=== PATIENT | male | born 1970 | race African-American/Black ===

== ENCOUNTER 2019-03-13 17:18 | Inpatient (IN) ==
[2019-03-13 17:43] LABS: BASO# 0.03 X1000 (0.0-0.2); BASO% 0.5 % (0.0-0.8); EOS# 0.23 X1000 (0.0-0.7); HEMATOCRIT 34.1 % (42.0-52.0); HEMOGLOBIN 10.3 g/dL (14.0-18.0); IMM GRAN# 0.01 X1000 (0.0-0.04); IMM GRAN% 0.2 % (0.0-0.5); LYMPH# 1.94 X1000 (1.2-3.4); LYMPH% 33.3 % (20.5-51.1); MCH 23.9 PG (27-31); MCHC 30.2 g/dL (33-37); MCV 79.1 FL (81-99); MONO# 0.31 X1000 (0.11-0.59); MONO% 5.3 % (1.7-9.3); MPV 11.7 FL (7.4-10.4); NEUT% 56.7 % (42.2-75.2); PLT 317 X1000 (130-400); RBC 4.31 XMIL (4.7-6.1); RDW 13.7 % (11.5-14.5); WBC 5.82 X1000 (4.8-10.8)
[2019-03-13 18:01] LABS: ALBUMIN 3.8 g/dL (3.5-5.0); CALCIUM 9.1 mg/dL (8.8-10.2); TOTAL BILIRUBIN 0.2 mg/dL (0.20-1.00); TOTAL PROTEIN 8.1 g/dL (6.3-8.3)
[2019-03-13 18:03] LABS: POTASSIUM 6.4 mmol/L (3.5-5.1)
[2019-03-13] MEDS ORDERED: HUMULIN R (PARKWAY) IV ONE (18:04)
[2019-03-13] MEDS ORDERED: SODIUM BICARBONATE 8.4% IV PUSH ONE (18:04)
--- NOTE | 2019-03-13 18:43 | EKG Report ---
Test Performed on : 03/13/2019 6:33:09 PM Test Reason : pain Blood Pressure : / mmHG Vent. Rate : 085 BPM Atrial Rate : 085 BPM P-R Int : 176 ms QRS Dur : 102 ms QT Int : 352 ms P-R-T Axes : 049 -40 030 degrees QTc Int : 418 ms Sinus rhythm. with occasional ventricular-paced complexes Left axis deviation Anterolateral infarct , age undetermined Abnormal ECG No previous ECGs available Confirmed by Stefan Reeves MD ([id number]) on 03/19/2019 6:32:52 AM
[2019-03-13] MEDS ORDERED: POTASSIUM CHLORIDE 20 MEQ/SWI 20 MEQ/100 ML IVPB IV PRN (19:07)
[2019-03-13] MEDS ORDERED: CALCIUM CHLORIDE SYRINGE IV ONE (19:15)
--- NOTE | 2019-03-13 19:18 | PROVIDER DOCUMENTATION ---
This chart was entered by Lu Bolaños Scribe, acting as scribe for Chase Garcia MD. HPI-General Adult - General Chief Complaint: Abnormal Lab[s] Stated Complaint: ABD LABS Time Seen by Provider: 03/13/19 18:03 Source: patient Allergies/Adverse Reactions: Patient Allergies Allergy/AdvReac Type Severity Reaction Status Date / Time No Known Allergies Allergy Verified 03/13/19 18:27 Home Medications: Home Medication List Medication Instructions Recorded Confirmed Last Taken Type Dapagliflozin/Metformin HCl 1 tab PO DAILY 03/13/19 03/13/19 Unknown History [Xigduo Xr 10 mg-1,000 mg Tab] Hydrochlorothiazide 1 tab PO DAILY 03/13/19 03/13/19 Unknown History - History of Present Illness -Gen Adult Nature of Presenting Problems: Pt is a 48yom who presents to the ED with a CC of high potassium. Pt states that he seen his PCP Dr. Israel Us and was told to visit the ED. Pt denies any chest pain, sob, or fever. Pt is a diabetic and reports to the ED with a BS >600. Pt is non toxic in appearance and does not present to the ED with any other complaints. Location of Pain/Injury: reports: none Pain Radiation: reports: no radiation Quality of Pain: reports: none Onset/Duration: reports: unsure Timing: reports: still present Context/Activities at Onset: reports: none Modifying Factors: improves with: nothing Associated Symptoms: reports: denies symptoms Similar Symptoms Previously?: No Recently seen or treated by another doctor?: Yes - Diabetes Related Context Context: reports: high blood sugar (over 600) Review of Systems - Adult - REVIEW OF SYSTEMS - ADULT Constitutional: reports: see HPI, other (high potassium) Eyes: reports: no symptoms reported Ears, Nose, Mouth & Throat: reports: no symptoms reported Cardiovascular: reports: no symptoms reported Respiratory: reports: no symptoms reported Gastrointestinal: reports: no symptoms reported Genitourinary: reports: no symptoms reported Musculoskeletal: reports: no symptoms reported Integumentary: reports: no symptoms reported Neurological: reports: no symptoms reported Psychiatric: reports: no symptoms reported Endocrine: reports: no symptoms reported Hematologic/Lymphatic: reports: no symptoms reported Allergic/Immunologic: reports: no symptoms reported All Other Systems: Reviewed and Negative Past History - Adult - PAST MEDICAL HISTORY-ADULT Review of Records: reports: Old Records Reviewed, Nursing Assessment Review, Medications Reviewed, Social history reviewed & non-contributory. Major Childhood Illnesses: reports: denies history Cardiovascular: reports: denies history Respiratory: reports: denies history Gastrointestinal: reports: denies history Obstetrical/Gynecological: reports: denies history Genitourinary: reports: denies history Musculoskeletal: reports: denies history Neurological: reports: denies history Endocrine/Immune: reports: Diabetes Other Conditions: reports: denies history - PRIOR SURGERIES/PROCEDURES Surgical/Procedure History: reports: none Physical Exam-General - PHYSICAL EXAM-ADULT Initial Vital Signs Reviewed: Yes - CONSTITUTIONAL General Appearance: alert, no apparent distress - EYES Eyes: PERRL/EOMI, pink conjunctivae - HEAD, EARS, NOSE, MOUTH & THROAT HENMT: normocephalic/atraumatic, moist mucous membranes - NECK Neck: non-tender, full range of motion, normal inspection - RESPIRATORY Respiratory: chest non-tender, lungs clear, normal breath sounds - CARDIOVASCULAR Cardiovascular: normal peripheral pulses, regular rate, rhythm - GASTROINTESTINAL (ABDOMEN) Abdominal Exam: normal bowel sounds, non tender, soft - LYMPHATIC Lymphatic: no adenopathy - MUSCULOSKELETAL Back Exam: normal inspection Extremity: normal range of motion, non-tender, normal inspection - SKIN Integumentary: normal color, normal turgor, warm/dry - NEUROLOGIC Neurologic: grossly normal - PSYCHIATRIC Psych/Mental Status: normal mood/affect, normal thought content, normal thought process, oriented x 3 Progress - PLAN OF CARE/RESULTS Progress/Plan/Lab Results: Vital Signs - 8 hr 03/13/19 17:22 Temperature 98.1 F Pulse Rate 88 Respiratory Rate 20 Blood Pressure 150/79 O2 Sat by Pulse Oximetry 98 Laboratory Results - last 24 hr 03/13/19 03/13/19 17:31 17:31 WBC 5.82 RBC 4.31 L Hgb 10.3 L Hct 34.1 L MCV 79.1 L MCH 23.9 L MCHC 30.2 L RDW Std Deviation 13.7 Plt Count 317 MPV 11.7 H Immature Gran % (Auto) 0.2 Neut % (Auto) 56.7 Lymph % (Auto) 33.3 Arthur % (Auto) 5.3 Eos % (Auto) 4.0 Baso % (Auto) 0.5 Immature Gran # (Auto) 0.01 Neut # (Auto) 3.30 Lymph # (Auto) 1.94 Arthur # (Auto) 0.31 Eos # (Auto) 0.23 Baso # (Auto) 0.03 Sodium 126 L Potassium 6.4 H* Chloride 93 L Carbon Dioxide 22 L Anion Gap 11 BUN 32 H Creatinine 2.0 H Estimated GFR/1.73 m2 36 BUN/Creatinine Ratio 16 Glucose 645 H* Calculated Osmolality 291 Calcium 9.1 Total Bilirubin 0.20 AST 7 L ALT 8 L Alkaline Phosphatase 190 H Total Protein 8.1 Albumin 3.8 Globulin 4.0 Albumin/Globulin Ratio 1.0 Orders Category Date Time Status Cardiac Monitoring DIRECTED Care 03/13/19 18:04 Active Saline Loc NOW Care 03/13/19 18:05 Active CBC WITH DIFF [HEME] Stat Lab 03/13/19 17:31 Completed CMP [COMPREHENSIVE METABOLIC PANEL] [CHEM] Stat Lab 03/13/19 17:31 Completed Insulin Human Regular ([place] [Humulin R ([place])] Med 03/13/19 18:04 Discontinued 15 units IV NOW ONE Sodium Bicarbonate 8.4% Med 03/13/19 18:04 Discontinued 50 meq IV PUSH NOW ONE EKG [EKG] Stat Ther 03/13/19 18:05 Ordered Result Diagrams: 03/13/19 17:31 03/13/19 19:17 - EKG 1 Time of EKG reading by physician:: 18:34 EKG Read and Signed by:: Chase Garcia EKG Interpretation (*Must complete 3 of following elements*): Abnormal (anterolateral infarct, age undetermined) Rate: 85 Rhythm: sinus rhythm with occasional ventricular paced complexes Labadie: left (deviation) QRS: normal VA Interval: normal ST Wave: normal Comments: agree no stemi - CONSULTS/PCP/HOSPITALIST Notification #1 *Consult/PCP/Hospitalist*: Dr. Young, hospitalist Time Discussed: 19:10 Consult Disposition: Admit Departure - Departure Date of Disposition Decision: 03/13/19 Time of Disposition Decision: 21:34 DIAGNOSIS: Hyperkalemia Uncontrolled diabetes mellitus Qualifiers: Diabetes mellitus type: type 2 Glycemic state: with hyperglycemia Qualified Code(s): E11.65 - Type 2 diabetes mellitus with hyperglycemia UTI (urinary tract infection) Qualifiers: Urinary tract infection type: site unspecified Hematuria presence: without hematuria Qualified Code(s): N39.0 - Urinary tract infection, site not specified Disposition: ADMITTED INPATIENT 09 Certified Medical Emergency: Emergent Condition: Stable Referrals and Follow-Ups: Joshua Us [Primary Care Provider] - - Critical Care Note This patient required my direct & personal management of CC.: Yes Total Time (mins): 125 Critical Care Statement: This patient required my direct personal management to treat or rule out processes, the absence of which, could potentiallly result in sudden, clinically significant life or limb threatening deterioration. Attestation - Physician/ EUGENE Attestation Patient care was provided by Advanced Practice Provider:: No The physician spent face to face time with patient:: Yes Advanced Practice Provider documentation review:: Supervising physician onsite and consulted in the evaluation and care of this patient. The physician did have a face to face encounter with the patient. This chart was documented by the indicated scribe, (Lu Bolaños Scribe) and accurately reflects the services I performed and decisions made by me, Chase Garcia MD, as attested by the provider's signature.
[2019-03-13 19:46] LABS: URINE SOURCE CLEAN CATCH
[2019-03-13 19:48] LABS: BILIRUBIN URINE NEGATIVE (NEGATIVE); BLOOD URINE NEGATIVE (NEGATIVE); COLOR STRAW; GLUCOSE URINE >1000 mg/dL (NEGATIVE); KETONE URINE NEGATIVE (NEGATIVE); LEUKOCYTES URINE MODERATE (NEGATIVE); NITRITE URINE NEGATIVE (NEGATIVE); PROTEIN URINE NEGATIVE (NEGATIVE); SP GRAVITY URINE 1.019; TURBIDITY URINE CLEAR (CLEAR); UROBILINOGEN URINE NORMAL (NORMAL)
[2019-03-13 19:49] LABS: UR EPITHELIAL CELLS <10 /HPF (<10); URINE BACTERIA NEGATIVE /HPF; URINE RBC <10 /HPF (<10); URINE WBC 20-40 /HPF (<10)
[2019-03-13] MEDS ORDERED: CALCIUM GLUCONATE ONE (19:53)
[2019-03-13 19:54] LABS: MAGNESIUM 2.7 mg/dL (1.5-2.7); PHOSPHORUS 4.6 mg/dL (2.7-4.5)
[2019-03-13 19:58] LABS: UR AMPHETAMINES QUAL NONE DETECTED (NONE DETECT); UR BARBITUATES QUAL NONE DETECTED (NONE DETECT); UR BENZODIAZEPIN QUAL PRESUMPTIVE POSITIVE (NONE DETECT); UR COCAINE QUAL NONE DETECTED (NONE DETECT); UR METHADONE QUAL NONE DETECTED (NONE DETECT); UR METHAMPHETAMINE QUAL NONE DETECTED (NONE DETECT); UR OPIATES QUAL NONE DETECTED (NONE DETECT); UR OXYCODONE QUAL NONE DETECTED (NONE DETECT); UR PCP QUAL NONE DETECTED (NONE DETECT)
[2019-03-13 19:59] LABS: UR CANNABINOIDS QUAL NONE DETECTED (NONE DETECT); UR PROPOXYPHENE QUAL NONE DETECTED (NONE DETECT); UR TCA QUAL NONE DETECTED (NONE DETECT)
[2019-03-13 20:55] LABS: CALCIUM 9.4 mg/dL (8.8-10.2); CREATININE 2.1 mg/dL (0.7-1.2); POTASSIUM 5.6 mmol/L (3.5-5.1)
[2019-03-13] MEDS ORDERED: NS 1,000 ML IV ONE (21:28)
[2019-03-13] MEDS ORDERED: ROCEPHIN 1 GM in NS 50 ML IV ONE (21:32)
[2019-03-13] MEDS ORDERED: NS 50 ML ONE (21:35)
[2019-03-14] MEDS: KAYEXALATE PO SCH ×4 (02:11→21:34)
[2019-03-14] MEDS: HUMULIN R (PARKWAY) SUBQ SCH ×4 (06:01→21:38)
[2019-03-14 07:50] LABS: CALCIUM 9.1 mg/dL (8.8-10.2); CREATININE 2.1 mg/dL (0.7-1.2)
[2019-03-14 07:53] LABS: POTASSIUM 6.3 mmol/L (3.5-5.1)
[2019-03-14] MEDS ORDERED: HUMULIN R (PARKWAY) IV ONE (08:11)
[2019-03-14] MEDS ORDERED: ZOFRAN IV PRN (08:33)
[2019-03-14] MEDS ORDERED: TYLENOL PO PRN (08:33)
[2019-03-14] MEDS ORDERED: GLUCOPHAGE XR PO SCH (09:00)
[2019-03-14] MEDS ORDERED: DAPAGLIFLOZIN PO SCH (09:00)
[2019-03-14] MEDS ORDERED: METFORMIN HCL PO SCH (09:00)
[2019-03-14] MEDS ORDERED: NON-FORMULARY MED PO SCH (09:00)
[2019-03-14] MEDS: HYDROCHLOROTHIAZIDE PO SCH (09:16)
[2019-03-14] MEDS: NS 1,000 ML IV SCH ×2 (09:16→17:03)
[2019-03-14] MEDS: LOKELMA POWDER PACKET PO SCH ×3 (10:50→17:03)
[2019-03-14 12:26] LABS: CALCIUM 8.7 mg/dL (8.8-10.2); CREATININE 2.1 mg/dL (0.7-1.2); MAGNESIUM 2.4 mg/dL (1.5-2.7); POTASSIUM 5.7 mmol/L (3.5-5.1)
--- NOTE | 2019-03-14 12:48 | EKG Report ---
Test Performed on : 03/14/2019 11:46:47 AM Test Reason : REPEAT Blood Pressure : / mmHG Vent. Rate : 086 BPM Atrial Rate : 086 BPM P-R Int : 184 ms QRS Dur : 102 ms QT Int : 356 ms P-R-T Axes : 065 -22 065 degrees QTc Int : 426 ms Normal sinus rhythm. Possible Anterior infarct , age undetermined Abnormal ECG When compared with ECG of 13-MAR-2019 18:33, (Unconfirmed) Sinus rhythm. has replaced Electronic ventricular pacemaker Confirmed by Stefan Reeves MD ([id number]) on 03/19/2019 6:32:47 AM
--- NOTE | 2019-03-14 14:33 | HISTORY AND PHYSICAL ---
PRIMARY CARE PROVIDERS: Dr. oJshua Us. CHIEF COMPLAINT: Presents with elevated blood sugar and potassium was sent by his primary care provider, Dr. Joshua Us. HISTORY OF PRESENT ILLNESS: Mr. Quentin Tatum is a 48-year-old male with a medical history of diabetes mellitus type 2, bilateral lower extremity lymphedema, CKD stage III, who is here due to the fact that he went last to Dr. Us, had labs drawn and then Monday followed up with him. He was informed that his potassium was elevated. He needed to seek medical attention in the ER. He presented to [facility] on the and was admitted. His blood glucose level initially was 645, and his potassium was 6.4. He said that Dr. Us initially told him his potassium level was 7.0. So he was treated in the emergency department. The potassium initially went down to 5.6 and then went right back up 6.3. His blood glucose levels have been hanging in the 300s. He has no complaints of excessive urination or thirst. He denies any palpitations. PAST MEDICAL HISTORY: 1. Diabetes mellitus type 2, currently uncontrolled and even a mild case of HHNK, which is already resolving. He is on a sliding scale insulin, diabetic diet, pattern blood glucoses. His metformin has been resumed, home medications. 2. Hyperkalemia. In the emergency department they treated him with calcium, insulin, fluids, and sodium bicarbonate. Then he was scheduled for Kayexalate and Lokelma. Will do potassium levels every 4 hours. We will also include a magnesium as well. 3. Chronic kidney disease stage III, currently stable. 4. Hypertension. Continue hydrochlorothiazide. 5. Deep venous thrombosis prophylaxis. SCDs. 6. Bilateral lymphedema. PAST SURGICAL HISTORY: None. SOCIAL HISTORY: Tobacco: Denies tobacco abuse. No alcohol. No illicit drug use. He is , works and has children. FAMILY HISTORY: Mother had an OH in her late 50s. Father: No medical conditions. ALLERGIES: No known drug allergies. HOME MEDICATIONS: 1. Hydrochlorothiazide 25 mg p.o. daily. 2. Dapagliflozin/metformin 1 tablet p.o. daily. REVIEW OF SYSTEMS: Fourteen point review of systems are complete and all were negative, except for those mentioned above in the HPI. PHYSICAL EXAM: VITAL SIGNS: Temperature 98.3 degrees, heart rate 93, respiratory rate 16, blood pressure 119/74, O2 saturation 100% on room air. GENERAL: Mr. Quentin Tatum is a 48-year-old male, who is in no acute distress. He is able to answer questions appropriately. HEENT: Atraumatic, normocephalic. Pupils equal, round, reactive to light. Extraocular movements intact. Mucous membranes are moist. NECK: Trachea midline. CARDIOVASCULAR: S1, S2. Regular rate and rhythm. No rubs, gallops, murmurs. He got 1+ lower extremity edema. +2 dorsalis and radial pulses. Negative JVD or carotid bruits. PULMONARY: Clear to auscultation. Bilateral breath sounds. No accessory muscle use or work of breathing noted. GI: Soft, nontender, nondistended. Positive bowel sounds x4. EXTREMITIES: Moves all extremities equally. Full range of motion. NEUROLOGIC: A and O x3. Follows commands. Sensory is intact. SKIN: Warm, dry, intact. LABORATORY DATA: White blood cells 5000, hemoglobin 10, hematocrit 34, platelet count 317. Sodium 134, potassium 6.3. BUN 35, creatinine 2.1, glucose 397, calcium 9.1. MICROBIOLOGY: Urine drug screen was positive for benzodiazepines. No cultures. IMAGING: None. There was an EKG sinus rhythm, heart rate was 85, QTc was 418. Mildly peaked T- waves. ASSESSMENT AND PLAN: 1. Uncontrolled diabetes mellitus type 2. Narrowly in a state of hyperglycemic hyperosmolar non- ketotic as his blood glucose level is 645 when he first presented. He is maintaining in the 300s right now, currently on a low-dose sliding scale insulin. He is on his metformin. May have to increase a sliding scale. He is on diabetic diet. 2. Hyperkalemia. In the emergency department he received bicarbonate, fluids, insulin, calcium, and was initiated on scheduled Kayexalate and Lokelma. He will be on every 4 hour potassium checks for now and repeat electrocardiogram. 3. Chronic kidney disease stage III, currently stable. 4. Bilateral lower extremity edema secondary to bilateral lymphedema. No changes in that according to the patient. 5. Deep venous thrombosis prophylaxis. Sequential compression devices. Dictated by EMILY Dang for Hardik Whitt MD cc: EMILY Dang MD
[2019-03-14 17:33] LABS: CALCIUM 8.7 mg/dL (8.8-10.2); CREATININE 2.1 mg/dL (0.7-1.2); MAGNESIUM 2.5 mg/dL (1.5-2.7); POTASSIUM 5.4 mmol/L (3.5-5.1)
[2019-03-14 21:21] LABS: CALCIUM 8.9 mg/dL (8.8-10.2); CREATININE 2.1 mg/dL (0.7-1.2); MAGNESIUM 2.5 mg/dL (1.5-2.7)
--- NOTE | 2019-03-14 22:51 | HISTORY AND PHYSICAL ---
ADDENDUM: Patient seen and examined by myself. Full note dictated and discussed with nurse practitioner. Patient presented to the hospital with elevated potassium from an outside lab. Potassium on exam was 6.7. He has been given Kayexalate. He is also noted to have an elevated creatinine at 2.0 with our last on file being 1.5. We are going to admit him to the hospital. Continue to treat his potassium. Continue IV fluids. Follow his kidney function. We will stop his Glucophage. Given his elevated creatinine, we will also hold his hydrochlorothiazide to see if this helps, although his BUN is not really that elevated. Check a renal ultrasound in the a.m. We will check a urine culture as it does appear as though he may have a UTI. Recheck labs in the a.m. His blood pressures have been fairly well controlled. Sodium is actually low at 131, although this is likely more related to treatment, and we will follow. cc: Hardik Whitt MD
[2019-03-15] MEDS: NS 1,000 ML IV SCH ×2 (00:59→08:56)
[2019-03-15 01:54] LABS: CALCIUM 8.8 mg/dL (8.8-10.2); CREATININE 1.8 mg/dL (0.7-1.2); MAGNESIUM 2.5 mg/dL (1.5-2.7); POTASSIUM 4.7 mmol/L (3.5-5.1)
[2019-03-15] MEDS: KAYEXALATE PO SCH ×2 (02:04→08:55)
[2019-03-15] MEDS: HUMULIN R (PARKWAY) SUBQ SCH (06:12)
[2019-03-15] MEDS ORDERED: JARDIANCE PO ONE (06:53)
[2019-03-15 08:10] LABS: BASO# 0.04 X1000 (0.0-0.2); BASO% 0.6 % (0.0-0.8); EOS# 0.25 X1000 (0.0-0.7); EOS% 3.9 % (0.0-10.0); HEMATOCRIT 30.6 % (42.0-52.0); HEMOGLOBIN 9.1 g/dL (14.0-18.0); IMM GRAN# 0.02 X1000 (0.0-0.04); IMM GRAN% 0.3 % (0.0-0.5); LYMPH% 42.7 % (20.5-51.1); MCH 23.9 PG (27-31); MCHC 29.7 g/dL (33-37); MCV 80.3 FL (81-99); MONO# 0.46 X1000 (0.11-0.59); MONO% 7.3 % (1.7-9.3); MPV 11.6 FL (7.4-10.4); NEUT# 2.86 X1000 (1.4-6.5); NEUT% 45.2 % (42.2-75.2); PLT 323 X1000 (130-400); RBC 3.81 XMIL (4.7-6.1); RDW 13.6 % (11.5-14.5); WBC 6.33 X1000 (4.8-10.8)
[2019-03-15 08:26] LABS: ALBUMIN 3.7 g/dL (3.5-5.0); CALCIUM 8.7 mg/dL (8.8-10.2); CREATININE 1.7 mg/dL (0.7-1.2); MAGNESIUM 2.4 mg/dL (1.5-2.7); POTASSIUM 4.1 mmol/L (3.5-5.1); TOTAL BILIRUBIN 0.3 mg/dL (0.20-1.00); TOTAL PROTEIN 7.6 g/dL (6.3-8.3)
[2019-03-15 08:37] VITALS: BP 129/83
--- NOTE | 2019-03-15 08:40 | Diag Imaging Result Doc PS360 ---
EXAM: US RENAL 2 (RETROPER) COMPLETE - 03/15/2019 HISTORY: renal failure TECHNIQUE: Bilateral renal ultrasound COMPARISON: None. FINDINGS: The right kidney measures 12.8 x 5.2 x 5.7 cm in size. The left kidney measures 13.2 x 5.7 x 6.6 cm in size. There is a 1.5 cm cyst at the lower left kidney. There is no solid renal mass, renal stone, or hydronephrosis identified. Images of the urinary bladder demonstrate no lesion. The urinary bladder volume is 926 mL. IMPRESSION: 1.5 cm left renal cysts. No other visible renal abnormality. No hydronephrosis. The urinary bladder volume is 926 mL. There is no visible urinary bladder lesion. Electronically signed by Kurtis Carlos 03/15/2019 8:38 AM
[2019-03-15] MEDS: LOKELMA POWDER PACKET PO SCH (08:56)
[2019-03-15] MEDS: HYDROCHLOROTHIAZIDE PO SCH (08:56)
--- NOTE | 2019-03-16 05:32 | DISCHARGE SUMMARY ---
ADMISSION DATE: 03/14/2019 DISCHARGE DATE: 03/15/2019 DISCHARGE DIAGNOSES: 1. Diabetes with poor home control. 2. Acute on chronic renal failure. Creatinine was 2.1 on admit, 1.7 on discharge. 3. Hyperkalemia, 6.7 on admit, 4.7 on discharge. 4. Chronic kidney disease stage 3. 5. Bilateral lymphedema. CONSULTATIONS: None. PROCEDURES: None. BRIEF HOSPITAL COURSE: Patient is a very pleasant 48-year-old male who presented to the hospital with hyperkalemia and acutely elevated creatinine. We did stop his Glucophage secondary to his creatinine being 2.1 on admit and 1.7 on discharge. Discharged him home on Jardiance. Discussed him that he may want to consider Ozempic, Trulicity or the new oral pill. We will continue to follow. DISPOSITION: Patient is awake, alert. He is in no distress. He has tolerated a full diet. Tolerated Jardiance without any difficulty. Therefore, we will discharge him home. TIME SPENT: Greater than 30 minutes was spent in discharge care. Discussed with patient that he needs to follow up next week with his primary care to have his labs rechecked and he needs to watch his diet as far as diabetes. cc: Hardik Whitt MD MTDD
--- NOTE | 2019-03-16 14:50 | DISCHARGE SUMMARY ---
ADMISSION DATE: 03/14/2019 DISCHARGE DATE: 03/15/2019 ADMISSION DIAGNOSES: 1. Uncontrolled diabetes mellitus type 2. 2. Almost in a state of hyperglycemic hyperosmolar non ketosis. 3. Hyperkalemia. 4. Chronic kidney disease stage 3. 5. Bilateral lower extremity edema secondary to bilateral lymphedema. DISCHARGE DIAGNOSES: 1. Uncontrolled diabetes mellitus type 2. 2. Almost in a state of hyperglycemic hyperosmolar non ketosis. 3. Hyperkalemia. 4. Chronic kidney disease stage 3. 5. Bilateral lower extremity edema secondary to bilateral lymphedema. 6. Possibly acute kidney injury on top of CKD. There was not a recent creatinine to compare it to. The one he had prior to had been several years back and it was 1.5, and he was up to 2.0 here with BUN being close to the same. CONSULTATIONS: None. SURGERIES AND PROCEDURES: None. HOSPITAL COURSE: Mr. Quentin Tatum is a 48-year-old male with a medical history of diabetes mellitus type 2, bilateral lower extremity lymphedema, CKD stage 3. Apparently went to see his physician the prior to admission, had labs drawn, followed up on Monday and was informed to come to the hospital due to an elevation of potassium. Had presented on the , was admitted. Glucose initially was 645, potassium was 6.4. He stated that his potassium was 7.[address] Us's office. It was treated, then it went down, went right back up, so he had to stay here a little longer. Blood glucose levels maintained in the 300s, so a sliding scale insulin had to be increased. Potassium levels finally normalized down to about 4.1. The highest it got was 6.4, that was on Kayexalate and Lokelma. He had a renal ultrasound here. It did not show any renal masses or stones or hydronephrosis. Bladder was fine. It did not really mention that it was consistent with renal medical disease either. Creatinine maintained around 2.1. The lowest it is, is today at 1.7 and the BUN remained the same as well. DISCHARGE VITAL SIGNS: Temperature 98.0 degrees, heart rate 88, respiratory rate 18, blood pressure 129/83, O2 saturation 100% on room air. DISCHARGE LAB DATA: White blood cells 6000, hemoglobin 9, hematocrit 30, platelet count 323,000. Sodium 139, potassium 4.1, BUN 34, creatinine is 1.7, glucose 125, calcium 8.7, magnesium 2.4, bilirubin 0.30, AST 10, ALT 8, albumin 3.7. IMAGING: Renal ultrasound. No renal abnormality. No hydronephrosis. There was a 1.5 cm left renal cyst. EKG normal sinus rhythm, rate 86, QTc 426. DISCHARGE MEDICATIONS: 1. Hydrochlorothiazide 25 mg p.o. daily. 2. Jardiance 25 mg p.o. daily. PHYSICIAN FOLLOWUP: Joshua Us MD. DISCHARGE ACTIVITY: As tolerated. DISCHARGE DIET: Diabetic. DISCHARGE INSTRUCTIONS: If her condition changes, contact physician and/or return to the emergency department. Changes may include, but not limited to shortness of breath, increased fatigue, excessive bleeding, unexplained weight loss or gain, unmanageable pain, signs or symptoms of infection. DISCHARGE DISPOSITION: Home. Dictated by EMILY Dang for Hardik Whitt MD cc: EMILY Dang MD
== END 2019-03-15 09:33 | disposition home or self-care (01) | DRG 638 ==
LOC: P.MEDSURG 17:18 → P.ED 17:18 → SUATTDRO 03-14 → OBSVTOIN 03-14
PROVIDERS: ATTEND Family Medicine